=== PATIENT | male | born 1955 | race Caucasian/White ===

== ENCOUNTER 2019-01-23 10:00 | Day surgery (SDC) | payer BC, OTHER ==
[~2019-01-23 10:00] MED LIST: LIDOCAINE HCL 1% MPF 30 SOL ONE; PROPOFOL 500 MG/50 ML EMU IV ONE
[2019-01-23 12:12] VITALS: O2SAT 98
[2019-01-23 12:24] VITALS: BP 162/82; PULSE 68; RESP 18; TEMP 98.7
== END 2019-01-23 12:45 | disposition home or self-care (01) | DRG 951 ==
LOC: SURG 10:00
PROVIDERS: ATTEND Surgery
DX: Z12.11 Encounter for screening for malignant neoplasm of colon (principal); Z80.0 Family history of malignant neoplasm of digestive organs; D12.3 Benign neoplasm of transverse colon
CPT/HCPCS: 99001; J2001; J2704